=== PATIENT | female | born 1985 | race Caucasian/White ===

== ENCOUNTER 2017-07-07 08:47 | Emergency (ER) | payer MEDICAID ==
[2017-07-07] MEDS: IBUPROFEN 800 MG TAB PO (09:15)
== END 2017-07-07 10:43 | disposition home or self-care (01) ==
LOC: FTE 08:47
DX: M25.511 Pain in right shoulder (principal); M54.2 Cervicalgia; R07.89 Other chest pain; M25.561 Pain in right knee
CPT/HCPCS: 71045; 73030-RT; 73562; 99284-25

== ENCOUNTER 2018-01-14 15:42 | Emergency (ER) | payer MEDICAID ==
[2018-01-14 18:23] LABS: ADD MAN DIFF? NO
[2018-01-14 18:25] LABS: WHITE BLOOD COUNT 6.1 10^3/ul (4.8-10.8)
[2018-01-14 18:25] LABS: BASOPHILS % 0.3 % (0.0-2.0); EOSINOPHILS % 0.7 % (0.0-7.0); HEMATOCRIT 34.8 % (37.0-47.0); HEMOGLOBIN 11.7 g/dl (12.0-16.0); LYMPHOCYTES # 1.4 10^3/ul (0.8-2.9); LYMPHOCYTES % 22.8 % (15.0-51.0); MEAN CORPUSCULAR HEMOGLOBIN 28.5 pg (29.0-33.0); MEAN CORPUSCULAR HGB CONC 33.6 g/dl (32.0-37.0); MEAN CORPUSCULAR VOLUME 84.9 fl (82.0-101.0); MEAN PLATELET VOLUME 7.9 fl (7.4-10.4); MONOCYTE # 0.4 10^3/ul (0.3-0.9); MONOCYTES % 5.7 % (0.0-11.0); NEUTROPHIL # 4.3 10^3/ul (1.6-7.5); NEUTROPHILS % 70.3 % (39.0-77.0); PLATELET COUNT 253 10^3/UL (140-415); RED CELL DISTRIBUTION WIDTH 11.9 % (11.5-14.5)
[2018-01-14 18:48] LABS: ANION GAP 10 (8-16); BLOOD UREA NITROGEN 10 mg/dl (7-20); CALCIUM 9.7 mg/dl (8.4-10.2); CARBON DIOXIDE 28 mmol/L (21-31); CHLORIDE 103 mmol/L (97-110); CREATININE 0.54 mg/dl (0.44-1.00); GLUCOSE 88 mg/dl (70-220); SODIUM 137 mmol/L (135-144)
[2018-01-14 19:21] LABS: URINE BLOOD (Dip) POC 2+ (NEGATIVE); URINE GLUCOSE (Dip) POC Negative (NEGATIVE); URINE KETONES (Dip) POC Negative (NEGATIVE); URINE LEUKOCYTE EST (Dip) POC Trace (NEGATIVE); URINE NITRITE (Dip) POC Negative (NEGATIVE); URINE TOTAL PROTEIN POC Negative (NEGATIVE)
== END 2018-01-14 20:02 | disposition home or self-care (01) ==
LOC: FTE 15:42
DX: O20.9 Hemorrhage in early pregnancy, unspecified (principal); O23.11 Infections of bladder in pregnancy, first trimester; R10.2 Pelvic and perineal pain; Z3A.12 12 weeks gestation of pregnancy
CPT/HCPCS: 36415; 76801; 80048; 81003; 81025; 85025; 99284-25

== ENCOUNTER 2018-05-26 13:51 | Inpatient (IN) | payer MEDICAID ==
[2018-05-26] MEDS: TERBUTALINE 1 MG/ML INJ SC ×2 (14:28→16:38)
[2018-05-26] MEDS: LACTATED RINGER'S 500 ML IV ×2 (14:29→19:25)
[2018-05-26 14:34] LABS: ADD UMIC YES; UR AMORPHOUS CRYSTAL FEW /HPF (NONE SEEN); UR ASCORBIC ACID NEGATIVE (NEGATIVE); UR BACTERIA FEW /HPF (NONE SEEN); UR BILIRUBIN (Dip) NEGATIVE (NEGATIVE); UR BLOOD (Dip) NEGATIVE (NEGATIVE); UR CLARITY CLOUDY (CLEAR); UR COLOR YELLOW (YELLOW); UR GLUCOSE (Dip) NEGATIVE (NEGATIVE); UR KETONES (Dip) NEGATIVE (NEGATIVE); UR LEUKOCYTE ESTERASE (Dip) NEGATIVE Leu/ul (NEGATIVE); UR NITRITE (Dip) NEGATIVE (NEGATIVE); UR RBC 1 /HPF (0-5); UR SPECIFIC GRAVITY (Dip) 1.008 (1.003-1.030); UR TOTAL PROTEIN (Dip) NEGATIVE (NEGATIVE); UR UROBILINOGEN (Dip) NEGATIVE (NEGATIVE); UR WBC 0 /HPF (0-5)
[2018-05-26] MEDS ORDERED: ACETAMINOPHEN 325 MG TAB PO (22:00)
[2018-05-26 22:07] LABS: ADD MAN DIFF? NO
[2018-05-26 22:10] LABS: WHITE BLOOD COUNT 8.5 10^3/ul (4.8-10.8)
[2018-05-26 22:10] LABS: BASOPHIL # 0.1 10^3/ul (0.0-0.1); BASOPHILS % 0.7 % (0.0-2.0); EOSINOPHILS # 0.1 10^3/ul (0.0-0.5); EOSINOPHILS % 0.6 % (0.0-7.0); HEMATOCRIT 34.9 % (37.0-47.0); HEMOGLOBIN 11.4 g/dl (12.0-16.0); LYMPHOCYTES % 23.1 % (15.0-51.0); MEAN CORPUSCULAR HEMOGLOBIN 29.5 pg (29.0-33.0); MEAN CORPUSCULAR HGB CONC 32.7 g/dl (32.0-37.0); MEAN CORPUSCULAR VOLUME 90.4 fl (82.0-101.0); MEAN PLATELET VOLUME 8.8 fl (7.4-10.4); MONOCYTE # 0.5 10^3/ul (0.3-0.9); MONOCYTES % 6.2 % (0.0-11.0); NEUTROPHIL # 5.8 10^3/ul (1.6-7.5); NEUTROPHILS % 67.6 % (39.0-77.0); PLATELET COUNT 237 10^3/UL (140-415); RED BLOOD COUNT 3.86 10^6/ul (4.20-5.40); RED CELL DISTRIBUTION WIDTH 12.6 % (11.5-14.5)
[2018-05-26 22:28] LABS: ALANINE AMINOTRANSFERASE 26 IU/L (13-69); ALBUMIN 3.7 g/dl (3.3-4.9); ALBUMIN/GLOBULIN RATIO 1.23; ALKALINE PHOSPHATASE 77 IU/L (42-121); ANION GAP 10 (5-13); ASPARTATE AMINO TRANSFERASE 22 IU/L (15-46); BILIRUBIN,INDIRECT 0.2 mg/dl (0-1.1); BILIRUBIN,TOTAL 0.2 mg/dl (0.2-1.3); BLOOD UREA NITROGEN 5 mg/dl (7-20); CALCIUM 9.3 mg/dl (8.4-10.2); CARBON DIOXIDE 25 mmol/L (21-31); CHLORIDE 101 mmol/L (97-110); CREATININE 0.35 mg/dl (0.44-1.00); Estimated GFR > 60 mL/min (>60); GLUCOSE 84 mg/dl (70-220); SODIUM 136 mmol/L (135-144); TOTAL PROTEIN 6.7 g/dl (6.1-8.1)
[2018-05-26 22:35] LABS: INR 0.91; POTASSIUM 2.7 mmol/L (3.5-5.1); PROTIME 12.4 Sec (11.9-14.9)
[2018-05-26 22:36] LABS: PARTIAL THROMBOPLASTIN TIME 27.5 Sec (23.0-35.0)
[2018-05-26] MEDS: BETAMET NA PHOS/AC(6 MG/ML) 2 ML INJ SYG IM (23:16)
[2018-05-26] MEDS: MAGNESIUM SULFATE 4 GM/100 ML 100 ML IV (23:17)
[2018-05-26] MEDS: MAGNESIUM SULFATE 20 GM/500 ML 500 ML IV (23:49)
[2018-05-27] MEDS ORDERED: ONDANSETRON 4 MG INJ IV (00:30)
[2018-05-27] MEDS ORDERED: AL HYDROX/MG HYDROX/SIMETH 30 ML CUP PO (00:30)
[2018-05-27] MEDS: LACTATED RINGER'S 1,000 ML IV ×2 (05:18→18:26)
[2018-05-27 07:24] LABS: MAGNESIUM 5.2 mg/dl (1.7-2.5)
[2018-05-27] MEDS: FERROUS SULFATE (EC) 325 MG TAB PO (08:50)
[2018-05-27] MEDS: PRENATAL VITAMIN PO (08:50)
[2018-05-27] MEDS: MAGNESIUM SULFATE 20 GM/500 ML 500 ML IV ×3 (10:37→21:38)
[2018-05-27 12:41] LABS: MAGNESIUM 5.1 mg/dl (1.7-2.5)
[2018-05-27 16:43] LABS: RAPID PLASMA REAGIN NONREACTIVE (NR)
[2018-05-27 19:30] LABS: MAGNESIUM 5.1 mg/dl (1.7-2.5)
[2018-05-27] MEDS: LACTATED RINGER'S 500 ML IV ×6 (19:58→19:59)
[2018-05-27] MEDS: PHENAZOPYRIDINE 200 MG TAB PO (21:31)
[2018-05-27] MEDS: BETAMET NA PHOS/AC(6 MG/ML) 2 ML INJ SYG IM (23:10)
[2018-05-27] MEDS: POTASSIUM CHLORIDE 100 ML IVPB (23:46)
[2018-05-27] MEDS: POTASSIUM CHLORIDE (SR) 20 MEQ TAB PO (23:46)
[2018-05-28 01:33] LABS: MAGNESIUM 4.2 mg/dl (1.7-2.5)
[2018-05-28] MEDS: POTASSIUM CHLORIDE 100 ML IVPB (04:44)
[2018-05-28] MEDS: LACTATED RINGER'S 1,000 ML IV ×3 (04:57→19:08)
[2018-05-28 06:35] LABS: MAGNESIUM 3.8 mg/dl (1.7-2.5)
[2018-05-28] MEDS: PRENATAL VITAMIN PO (09:02)
[2018-05-28] MEDS: FERROUS SULFATE (EC) 325 MG TAB PO (09:02)
[2018-05-28] MEDS: PHENAZOPYRIDINE 200 MG TAB PO ×2 (09:12→14:35)
[2018-05-28 10:42] LABS: ALANINE AMINOTRANSFERASE 11 IU/L (13-69); ALBUMIN 3.2 g/dl (3.3-4.9); ALBUMIN/GLOBULIN RATIO 1.23; ALKALINE PHOSPHATASE 67 IU/L (42-121); ANION GAP 9 (5-13); ASPARTATE AMINO TRANSFERASE 18 IU/L (15-46); BILIRUBIN,INDIRECT 0.3 mg/dl (0-1.1); BILIRUBIN,TOTAL 0.3 mg/dl (0.2-1.3); BLOOD UREA NITROGEN 9 mg/dl (7-20); CALCIUM 8.1 mg/dl (8.4-10.2); CARBON DIOXIDE 21 mmol/L (21-31); CHLORIDE 106 mmol/L (97-110); CREATININE 0.42 mg/dl (0.44-1.00); Estimated GFR > 60 mL/min (>60); GLUCOSE 157 mg/dl (70-220); POTASSIUM 4.2 mmol/L (3.5-5.1); SODIUM 136 mmol/L (135-144); TOTAL PROTEIN 5.8 g/dl (6.1-8.1)
[2018-05-28] MEDS: MAGNESIUM SULFATE 20 GM/500 ML 500 ML IV (17:00)
[2018-05-29] MEDS: PHENAZOPYRIDINE 200 MG TAB PO ×3 (00:18→13:35)
[2018-05-29] MEDS: LACTATED RINGER'S 1,000 ML IV ×2 (02:59→10:56)
[2018-05-29] MEDS: PRENATAL VITAMIN PO (08:53)
[2018-05-29] MEDS: FERROUS SULFATE (EC) 325 MG TAB PO (08:53)
== END 2018-05-29 14:45 | disposition home or self-care (01) | DRG 833 ==
LOC: OBT 13:51 → L-D 13:51 → OBT 21:35 → L-D 21:35
DX: O47.03 False labor before 37 completed weeks of gestation, third trimester (principal); Z3A.30 30 weeks gestation of pregnancy
CPT/HCPCS: 36415; 76815; 76817; 76818; 80053; 81001; 82731; 83735; 85025; 85610; 85730; 86592; 86850; 86900; 86901; 87086; 96360; 96361; 96372

== ENCOUNTER 2018-07-23 06:35 | Inpatient (IN) | payer MEDICAID ==
[2018-07-23] MEDS ORDERED: IBUPROFEN 600 MG TAB PO ×2 (07:30→08:00)
[2018-07-23] MEDS ORDERED: OXYTOCIN 30 UNITS/LR 500 ML IV ×6 (07:30→09:30)
[2018-07-23] MEDS ORDERED: BUTORPHANOL 2 MG INJ IV ×2 (07:30→08:00)
[2018-07-23] MEDS ORDERED: METHYLERGONOVINE 0.2 MG INJ IM ×3 (07:30→09:30)
[2018-07-23] MEDS ORDERED: CARBOPROST 250 MCG INJ IM ×3 (07:30→09:30)
[2018-07-23] MEDS ORDERED: MISOPROSTOL 200 MCG TAB PR ×3 (07:30→09:30)
[2018-07-23] MEDS ORDERED: LIDOCAINE 1% (MPF) 30 ML INJ INJ ×2 (07:30→08:00)
[2018-07-23] MEDS ORDERED: LACTATED RINGER'S 1,000 ML IV (07:40)
[2018-07-23 08:06] LABS: ADD MAN DIFF? NO
[2018-07-23 08:12] LABS: WHITE BLOOD COUNT 11.3 10^3/ul (4.8-10.8)
[2018-07-23 08:12] LABS: BASOPHILS % 0.4 % (0.0-2.0); EOSINOPHILS # 0.1 10^3/ul (0.0-0.5); EOSINOPHILS % 0.7 % (0.0-7.0); HEMATOCRIT 36.7 % (37.0-47.0); LYMPHOCYTES # 1.4 10^3/ul (0.8-2.9); LYMPHOCYTES % 12.5 % (15.0-51.0); MEAN CORPUSCULAR HEMOGLOBIN 28.7 pg (29.0-33.0); MEAN CORPUSCULAR HGB CONC 32.7 g/dl (32.0-37.0); MEAN CORPUSCULAR VOLUME 87.8 fl (82.0-101.0); MEAN PLATELET VOLUME 8.9 fl (7.4-10.4); MONOCYTE # 0.9 10^3/ul (0.3-0.9); MONOCYTES % 7.9 % (0.0-11.0); NEUTROPHIL # 8.7 10^3/ul (1.6-7.5); NEUTROPHILS % 77.1 % (39.0-77.0); PLATELET COUNT 249 10^3/UL (140-415); RED BLOOD COUNT 4.18 10^6/ul (4.20-5.40); RED CELL DISTRIBUTION WIDTH 13.3 % (11.5-14.5)
[2018-07-23 08:31] LABS: INR 0.89; PROTIME 12.1 Sec (11.9-14.9); PT RATIO 0.9
[2018-07-23 08:32] LABS: PARTIAL THROMBOPLASTIN TIME 27.8 Sec (23.0-35.0)
[2018-07-23] MEDS: LACTATED RINGER'S 1,000 ML IV (08:36)
[2018-07-23] MEDS: OXYTOCIN 30 UNITS/LR 500 ML IV ×3 (09:11→10:12)
[2018-07-23 09:12] LABS: HEPATITIS B SURFACE ANTIGEN NEGATIVE (NEGATIVE)
[2018-07-23] MEDS: LACTATED RINGER'S 1,000 ML IV* ×2 (09:19→17:19)
[2018-07-23] MEDS ORDERED: MAGNESIUM HYDROXIDE 30ML CUP PO (09:30)
[2018-07-23] MEDS ORDERED: DIBUCAINE 1% 30 GM OINT TOP (09:30)
[2018-07-23] MEDS ORDERED: ONDANSETRON 4 MG INJ IV (09:30)
[2018-07-23] MEDS ORDERED: SENNA/DOCUSATE NA (8.6MG/50MG) TAB PO (09:30)
[2018-07-23] MEDS ORDERED: ACETAMINOPHEN 325 MG TAB PO ×2 (09:30)
[2018-07-23 21:50] LABS: RAPID PLASMA REAGIN NONREACTIVE (NR)
[2018-07-24] MEDS: IBUPROFEN 600 MG TAB PO ×2 (06:00→17:14)
[2018-07-24 08:36] LABS: ADD MAN DIFF? NO
[2018-07-24 08:37] LABS: WHITE BLOOD COUNT 12.2 10^3/ul (4.8-10.8)
[2018-07-24 08:37] LABS: BASOPHIL # 0.1 10^3/ul (0.0-0.1); BASOPHILS % 0.5 % (0.0-2.0); EOSINOPHILS # 0.1 10^3/ul (0.0-0.5); EOSINOPHILS % 0.7 % (0.0-7.0); HEMATOCRIT 33.6 % (37.0-47.0); HEMOGLOBIN 11.1 g/dl (12.0-16.0); LYMPHOCYTES # 1.3 10^3/ul (0.8-2.9); LYMPHOCYTES % 10.9 % (15.0-51.0); MEAN CORPUSCULAR HEMOGLOBIN 29.4 pg (29.0-33.0); MEAN CORPUSCULAR VOLUME 89.1 fl (82.0-101.0); MEAN PLATELET VOLUME 8.5 fl (7.4-10.4); MONOCYTE # 0.7 10^3/ul (0.3-0.9); MONOCYTES % 5.4 % (0.0-11.0); NEUTROPHIL # 9.9 10^3/ul (1.6-7.5); NEUTROPHILS % 80.9 % (39.0-77.0); PLATELET COUNT 231 10^3/UL (140-415); RED BLOOD COUNT 3.77 10^6/ul (4.20-5.40); RED CELL DISTRIBUTION WIDTH 13.2 % (11.5-14.5)
[2018-07-24] MEDS: BENZOCAINE 20% 56 ML SPRAY TOP (12:29)
[2018-07-24] MEDS: LANOLIN HPA 1 PKT TOP (12:30)
[2018-07-24] MEDS: WITCH HAZEL/GLYCERIN PAD PR (12:30)
[2018-07-25] MEDS: IBUPROFEN 600 MG TAB PO ×2 (04:06→17:59)
== END 2018-07-25 18:32 | disposition home or self-care (01) | DRG 807 ==
LOC: OBT 06:35 → L-D 07:14 → OBT 07:25 → L-D 07:18 → PP1 15:05
PROVIDERS: Obstetrics & Gynecology
PROC: 10E0XZZ Delivery of Products of Conception, External Approach (ICD-10-PCS; principal; 2018-07-23)
DX: O80 Encounter for full-term uncomplicated delivery (principal); Z37.0 Single live birth; Z3A.39 39 weeks gestation of pregnancy
CPT/HCPCS: 85025; 85610; 85730; 86592; 86850; 86900; 86901; 87340; 99464

== ENCOUNTER 2018-12-16 13:54 | Emergency (ER) | payer MEDICAID ==
[2018-12-16 16:35] LABS: ADD UMIC YES; UR ASCORBIC ACID NEGATIVE (NEGATIVE); UR BACTERIA FEW /HPF (NONE SEEN); UR BILIRUBIN (Dip) NEGATIVE (NEGATIVE); UR BLOOD (Dip) 1+ mg/dL (NEGATIVE); UR CLARITY CLEAR (CLEAR); UR COLOR COLORLESS (YELLOW); UR GLUCOSE (Dip) NEGATIVE (NEGATIVE); UR KETONES (Dip) NEGATIVE (NEGATIVE); UR LEUKOCYTE ESTERASE (Dip) NEGATIVE Leu/ul (NEGATIVE); UR NITRITE (Dip) NEGATIVE (NEGATIVE); UR RBC 1 /HPF (0-5); UR SPECIFIC GRAVITY (Dip) 1.003 (1.003-1.030); UR TOTAL PROTEIN (Dip) NEGATIVE (NEGATIVE); UR UROBILINOGEN (Dip) NEGATIVE (NEGATIVE); UR WBC 1 /HPF (0-5)
== END 2018-12-16 17:08 | disposition home or self-care (01) ==
LOC: FTE 13:54
DX: R10.2 Pelvic and perineal pain (principal)
CPT/HCPCS: 76830; 76856; 81001; 81025; 87086; 99284-25